=== PATIENT | female | born 1945 | race Caucasian/White ===

== ENCOUNTER 2024-05-08 23:14 | Inpatient (IN) | payer OTHER ==
[~2024-05-08] VITALS: Ht 165.1 cm; Wt 53.5 kg
[2024-05-08 23:37] LABS: BASOPHILS # (AUTO) 0.1 K/UL (0.0-0.2); BASOPHILS % (AUTO) 0.5 % (0.0-2.0); EOSINOPHILS # (AUTO) 0.2 K/uL (0.0-0.7); EOSINOPHILS % (AUTO) 1.3 % (0.0-7.0); HEMATOCRIT 27.6 % (31.2-41.9); LYMPHOCYTES # (AUTO) 0.9 K/uL (0.8-4.8); LYMPHOCYTES % (AUTO) 7.5 % (20.5-51.5); MEAN CORPUSCULAR HEMOGLOBIN 28.3 uug (24.7-32.8); MEAN CORPUSCULAR HGB CONC 33 g/dL (32.3-35.6); MEAN CORPUSCULAR VOLUME 86.3 fL (75.5-95.3); MONOCYTES # (AUTO) 0.7 K/uL (0.1-1.30); MONOCYTES % (AUTO) 5.9 % (0.0-11.0); NEUTROPHILS # (AUTO) 10.6 K/uL (1.8-8.9); NEUTROPHILS % (AUTO) 84.8 % (38.5-71.5); PLATELET COUNT (AUTO) 222 K/uL (179-408); RED BLOOD CELL COUNT(AUTO) 3.19 MIL/uL (3.63-4.92); RED CELL DISTRIBUTION WIDTH 13.1 % (12.3-17.7); WHITE BLOOD COUNT (AUTO) 12.6 K/uL (3.8-11.8)
[2024-05-08 23:58] LABS: ABG BASE EXCESS -5.8 mmol/L (-2.0-3.0); ABG HCO3 17.8 mmol/L (21.0-28.0); ABG PCO2 28.5 mmHg (32.0-45.0); ABG PH 7.414 (7.350-7.450); ABG PO2 67.6 mmHg (83.0-108.0); ABG SITE LEFT RADIAL; ABG TOTAL HEMOGLOBIN 9.6 G/dL (12.0-16.0); AaDO2 94.1 mmHg; COHb 0.3 % (0.5-1.5); MetHb 0.4 % (0.0-1.5); O2Hb 92.5 % (94.0-98.0)
[2024-05-08 23:58] LABS: ALANINE AMINOTRANSFERASE 51 U/L (14-59); ALBUMIN 2.9 g/dL (3.4-5.0); ALKALINE PHOSPHATASE 258 U/L (50-136); ASPARTATE AMINOTRANSFERASE 25 U/L (15-37); BILIRUBIN,TOTAL 0.5 mg/dL (0.2-1.0); CALCIUM 8.4 mg/dL (8.5-10.1); CARBON DIOXIDE 23 mmol/L (21-32); CHLORIDE 97 mmol/L (98-107); CREATININE 2.2 mg/dL (0.6-1.3); GLUCOSE 316 mg/dL (74-106); MAGNESIUM 2.1 mg/dL (1.8-2.4); NT-PRO BNP 17806 pg/mL (0-125); POTASSIUM 4.1 mmol/L (3.5-5.1); SODIUM SERUM 132 mmol/L (136-145); TOTAL PROTEIN, SERUM 7.4 g/dL (6.4-8.2); UREA NITROGEN, BLOOD 50 mg/dL (7-18)
[2024-05-09] MEDS ORDERED: FUROSEMIDE 40 MG/4 ML VIAL ONE (00:01)
[2024-05-09] MEDS: FUROSEMIDE 40 MG/4 ML VIAL IV ONE (00:03)
[2024-05-09 00:04] LABS: C-REACTIVE PROTEIN 4.83 mg/dL (0.00-0.30)
[2024-05-09] MEDS ORDERED: ATOR20TA PO (01:15)
[2024-05-09] MEDS ORDERED: DAPA10TA PO (01:15)
[2024-05-09] MEDS ORDERED: ASPI81TA31 PO (01:15)
[2024-05-09] MEDS ORDERED: calcium PO (01:15)
[2024-05-09] MEDS ORDERED: DORZ10DR13 EACHEYE (01:15)
[2024-05-09] MEDS ORDERED: FURO20TA4 PO (01:15)
[2024-05-09] MEDS ORDERED: SEMA7TAB PO (01:15)
[2024-05-09] MEDS ORDERED: BIMA2.5D5 EACHEYE (01:15)
[2024-05-09] MEDS ORDERED: LOSA50TA39 PO (01:15)
[2024-05-09] MEDS ORDERED: FERR-56 PO (01:15)
[2024-05-09] MEDS ORDERED: ASCO500C18 PO (01:15)
[2024-05-09] MEDS ORDERED: GLIP5TAB13 PO (01:15)
[2024-05-09] MEDS ORDERED: CARV3.122 PO (01:15)
[2024-05-09] MEDS ORDERED: FOLI0.8T23 PO (01:15)
[2024-05-09] MEDS ORDERED: CLON0.5T4 PO (01:15)
[2024-05-09] MEDS ORDERED: CALC0.253 PO (01:15)
[2024-05-09] MEDS ORDERED: HYDR100T27 PO (01:15)
[2024-05-09] MEDS ORDERED: CEFTRIAXONE /D5W 50ML IVPB **ER PYXIS IV ONE (01:53)
[2024-05-09] MEDS ORDERED: AZITHROMYCIN 500MG/ D5W 250ML IVPB **ER PYXIS ONLY IV ONE (01:53)
[2024-05-09] MEDS: CEFTRIAXONE 1 G in IV DEXTROSE 5% 50 ML IV ONE (01:55)
[2024-05-09] MEDS: AZITHROMYCIN IV 500 MG in IV DEXTROSE 5% 250 ML IV ONE (01:55)
[2024-05-09] MEDS ORDERED: ACETAMINOPHEN 325 MG TABLET PO PRN (03:00)
[2024-05-09] MEDS ORDERED: hydrALAZINE HCL 25 MG TABLET PO PRN (03:00)
[2024-05-09] MEDS ORDERED: REMEDY ESSENTIAL ZINC PASTE 113 GM TP PRN (03:00)
[2024-05-09] MEDS ORDERED: MAGNESIUM HYDROXIDE 30 ML LIQUID UDC PO PRN (03:00)
[2024-05-09] MEDS ORDERED: ONDANSETRON 4 MG/2 ML VIAL IV PRN (03:00)
[2024-05-09] MEDS ORDERED: ASPIRIN 81 MG TAB.CHEW ONE (06:40)
[2024-05-09] MEDS: ASPIRIN 81 MG TAB.CHEW PO ONE (06:41)
[2024-05-09 07:46] VITALS: TEMP 97
[2024-05-09] MEDS: PANTOPRAZOLE SODIUM 40 MG TABLET.DR PO SCH (07:50)
[2024-05-09 09:00] VITALS: O2SAT 99
[2024-05-09] MEDS: FUROSEMIDE 40 MG/4 ML VIAL IV SCH (09:07)
[2024-05-09] MEDS: HEPARIN SODIUM,PORCINE 5,000 UNITS/ML VIAL SQ SCH (09:09)
[2024-05-09] MEDS: NITROGLYCERIN OINT 1 GM PACKET TP SCH (09:11)
[2024-05-09] MEDS ORDERED: DEXTROSE 50% 50 ML DISP.SYRIN IV PRN (11:45)
[2024-05-09 12:00] VITALS: BP 120/70; TEMP 97.8; O2SAT 95
[2024-05-09] MEDS ORDERED: CLONAZEPAM 0.5 MG TABLET PO PRN (12:00)
[2024-05-09] MEDS ORDERED: CALC667T2 PO (12:25)
[2024-05-09 15:20] VITALS: O2SAT 96
[2024-05-09 16:00] VITALS: BP 131/75; TEMP 97.8; O2SAT 97
[2024-05-09] MEDS: BLOOD SUGAR DIAGNOSTIC 1 EACH STRIP VI SCH (16:15)
[2024-05-09] MEDS: INSULIN REGULAR, HUMAN 1000 UNIT/10 ML VIAL SQ PRN (16:28)
[2024-05-09] MEDS: CARVEDILOL 6.25 MG TABLET PO SCH (16:29)
[2024-05-09] MEDS: hydrALAZINE HCL 50 MG TABLET PO SCH (16:30)
[2024-05-09] MEDS: DORZOLAMIDE/TIMOLOL OPHT DROP 10 ML BOTTLE EACHEYE SCH (16:30)
[2024-05-09] MEDS ORDERED: FERROUS SULFATE 325 MG TABEC PO SCH ×2 (17:00)
[2024-05-09] MEDS ORDERED: CARVEDILOL 3.125 MG TABLET PO SCH (17:00)
[2024-05-09] MEDS: CALCIUM ACETATE 667 MG CAP/TAB PO SCH (17:35)
[2024-05-09 19:42] VITALS: BP 133/52; TEMP 97.7; O2SAT 100
[2024-05-09] MEDS ORDERED: BIMATOPROST 0.01% OPHT DROP 2.5 ML BOTTLE EACHEYE SCH (21:00)
[2024-05-09] MEDS: AZITHROMYCIN IV 500 MG in IV DEXTROSE 5% 250 ML IV SCH (22:54)
[2024-05-09] MEDS: CEFTRIAXONE 1 G in IV DEXTROSE 5% 50 ML IV SCH (22:54)
[2024-05-09] MEDS: ATORVASTATIN 20 MG TABLET PO SCH (22:54)
[2024-05-09] MEDS: LATANOPROST OPHT DROP 2.5 ML BOTTLE EACHEYE SCH (22:55)
[2024-05-10] VITALS (7 sets, daily range): BP systolic 111–176; BP diastolic 50–85; TEMP 97.6–98.3; O2SAT 96–99
[2024-05-10 07:17] LABS: BASOPHILS # (AUTO) 0.1 K/UL (0.0-0.2); BASOPHILS % (AUTO) 0.8 % (0.0-2.0); EOSINOPHILS # (AUTO) 0.2 K/uL (0.0-0.7); EOSINOPHILS % (AUTO) 3.1 % (0.0-7.0); HEMATOCRIT 22.1 % (31.2-41.9); HEMOGLOBIN 7.7 g/dL (10.9-14.3); LYMPHOCYTES # (AUTO) 1.2 K/uL (0.8-4.8); LYMPHOCYTES % (AUTO) 19.1 % (20.5-51.5); MEAN CORPUSCULAR HEMOGLOBIN 29.7 uug (24.7-32.8); MEAN CORPUSCULAR HGB CONC 35 g/dL (32.3-35.6); MEAN CORPUSCULAR VOLUME 85.3 fL (75.5-95.3); MONOCYTES # (AUTO) 0.7 K/uL (0.1-1.30); MONOCYTES % (AUTO) 10.1 % (0.0-11.0); NEUTROPHILS # (AUTO) 4.3 K/uL (1.8-8.9); NEUTROPHILS % (AUTO) 66.9 % (38.5-71.5); PLATELET COUNT (AUTO) 194 K/uL (179-408); RED CELL DISTRIBUTION WIDTH 12.9 % (12.3-17.7); WHITE BLOOD COUNT (AUTO) 6.4 K/uL (3.8-11.8)
[2024-05-10 07:34] LABS: DIFFERENTIAL COMMENT 1
[2024-05-10 07:59] LABS: ALANINE AMINOTRANSFERASE 34 U/L (14-59); ALBUMIN 2.7 g/dL (3.4-5.0); ALKALINE PHOSPHATASE 173 U/L (50-136); ASPARTATE AMINOTRANSFERASE 20 U/L (15-37); BILIRUBIN,DIRECT 0.1 mg/dL (0.0-0.2); BILIRUBIN,TOTAL 0.5 mg/dL (0.2-1.0); CALCIUM 8.3 mg/dL (8.5-10.1); CARBON DIOXIDE 23 mmol/L (21-32); CHLORIDE 96 mmol/L (98-107); CREATINE KINASE, TOTAL 25 U/L (26-192); CREATININE 2.3 mg/dL (0.6-1.3); GLUCOSE 142 mg/dL (74-106); MAGNESIUM 2.1 mg/dL (1.8-2.4); NT-PRO BNP 22756 pg/mL (0-125); PHOSPHOROUS 3.8 mg/dL (2.5-4.9); POTASSIUM 3.4 mmol/L (3.5-5.1); SODIUM SERUM 132 mmol/L (136-145); TOTAL PROTEIN, SERUM 6.6 g/dL (6.4-8.2); UREA NITROGEN, BLOOD 50 mg/dL (7-18)
[2024-05-10 08:04] LABS: THYROID STIMULATING HORMONE 4.007 mIU/mL (0.358-3.740)
[2024-05-10] MEDS: ASCORBIC ACID 500 MG TABLET PO SCH (08:21)
[2024-05-10] MEDS: ASPIRIN 81 MG TAB.CHEW PO SCH (08:21)
[2024-05-10] MEDS: FOLIC ACID/VITAMIN B COMP W-C TABLET PO SCH (08:21)
[2024-05-10] MEDS: FERROUS SULFATE 325 MG TABEC PO SCH (08:21)
[2024-05-10] MEDS: DAPAGLIFLOZIN PROPANEDIOL 5 MG TABLET PO SCH (08:22)
[2024-05-10] MEDS ORDERED: POTASSIUM CHLORIDE 20 MEQ POWDER PACKET GT ONE (09:00)
[2024-05-10] MEDS: POTASSIUM CHLORIDE 20 MEQ TAB.PRT.SR PO ONE (09:20)
[2024-05-11] VITALS: BP 140/63; TEMP 97.9; O2SAT 97
[2024-05-11 04:00] VITALS: BP 124/44; TEMP 98.5; O2SAT 95
[2024-05-11 04:17] VITALS: O2SAT 97
[2024-05-11 07:08] LABS: BASOPHILS # (AUTO) 0.1 K/UL (0.0-0.2); BASOPHILS % (AUTO) 0.8 % (0.0-2.0); EOSINOPHILS # (AUTO) 0.3 K/uL (0.0-0.7); EOSINOPHILS % (AUTO) 3.7 % (0.0-7.0); HEMATOCRIT 22.7 % (31.2-41.9); LYMPHOCYTES # (AUTO) 1.5 K/uL (0.8-4.8); LYMPHOCYTES % (AUTO) 22.1 % (20.5-51.5); MEAN CORPUSCULAR HEMOGLOBIN 29.9 uug (24.7-32.8); MEAN CORPUSCULAR HGB CONC 35 g/dL (32.3-35.6); MEAN CORPUSCULAR VOLUME 84.7 fL (75.5-95.3); MONOCYTES # (AUTO) 0.6 K/uL (0.1-1.30); MONOCYTES % (AUTO) 8.9 % (0.0-11.0); NEUTROPHILS # (AUTO) 4.4 K/uL (1.8-8.9); NEUTROPHILS % (AUTO) 64.5 % (38.5-71.5); PLATELET COUNT (AUTO) 218 K/uL (179-408); RED BLOOD CELL COUNT(AUTO) 2.68 MIL/uL (3.63-4.92); RED CELL DISTRIBUTION WIDTH 13.3 % (12.3-17.7); WHITE BLOOD COUNT (AUTO) 6.9 K/uL (3.8-11.8)
[2024-05-11 07:22] LABS: DIFFERENTIAL COMMENT 1
[2024-05-11 07:37] LABS: CALCIUM 8.5 mg/dL (8.5-10.1); CARBON DIOXIDE 24 mmol/L (21-32); CHLORIDE 96 mmol/L (98-107); CREATININE 2.5 mg/dL (0.6-1.3); GLUCOSE 148 mg/dL (74-106); MAGNESIUM 2.1 mg/dL (1.8-2.4); PHOSPHOROUS 3.6 mg/dL (2.5-4.9); SODIUM SERUM 131 mmol/L (136-145); UREA NITROGEN, BLOOD 46 mg/dL (7-18)
[2024-05-11 07:39] LABS: C-REACTIVE PROTEIN 2.45 mg/dL (0.00-0.30)
[2024-05-11 07:46] VITALS: BP 136/64; TEMP 98.3; O2SAT 99
[2024-05-11 08:10] LABS: PTH, INTACT 57 pg/mL (15-65)
[2024-05-11 08:30] VITALS: BP 136/64
[2024-05-11] MEDS: FUROSEMIDE 40 MG TABLET PO SCH (08:30)
[2024-05-11] MEDS ORDERED: FURO-151 PO (10:29)
[2024-05-12 05:07] LABS: A/G RATIO 0.9 (0.7-1.7); ALBUMIN 2.7 g/dL (2.9-4.4); ALPHA-1-GLOBULIN 0.3 g/dL (0.0-0.4); ALPHA-2-GLOBULIN 0.8 g/dL (0.4-1.0); BETA GLOBULIN 0.8 g/dL (0.7-1.3); GAMMA GLOBULIN 1.2 g/dL (0.4-1.8); M-SPIKE Not Observed g/dL (Not Observed); PROTEIN, TOTAL 5.7 g/dL (6.0-8.5)
[2024-05-12] MEDS ORDERED: CALCITRIOL 0.25 MCG CAPSULE PO SCH (09:00)
== END 2024-05-11 12:30 | disposition home or self-care (01) | DRG 194 ==
LOC: ER 23:30 → TELE3 05-09 02:50
PROVIDERS: ADMIT Student in an Organized Health Care Education/Training Program
PROC: 5A09357 Assistance with Respiratory Ventilation, Less than 24 Consecutive Hours, Continuous Positive Airway Pressure (ICD-10-PCS; principal; 2024-05-09)
DX: I13.0 Hypertensive heart and chronic kidney disease with heart failure and stage 1 through stage 4 chronic kidney disease, or unspecified chronic kidney disease (principal); J96.01 Acute respiratory failure with hypoxia; I21.A1 Myocardial infarction type 2; E44.0 Moderate protein-calorie malnutrition; E87.1 Hypo-osmolality and hyponatremia; E11.22 Type 2 diabetes mellitus with diabetic chronic kidney disease; D64.9 Anemia, unspecified; I50.33 Acute on chronic diastolic (congestive) heart failure; N18.9 Chronic kidney disease, unspecified; E88.09 Other disorders of plasma-protein metabolism, not elsewhere classified; N17.9 Acute kidney failure, unspecified; E78.5 Hyperlipidemia, unspecified; E11.65 Type 2 diabetes mellitus with hyperglycemia; D72.829 Elevated white blood cell count, unspecified; Z79.84 Long term (current) use of oral hypoglycemic drugs; Z79.899 Other long term (current) drug therapy; Z79.82 Long term (current) use of aspirin
CPT/HCPCS: 36415; 36600; 71045; 76770; 82803; 83735; 83970; 84100; 84155; 84165; 84443; 84484; 85025; 86140; 93307; 94660; 99082-TC; G0378; J0456; J0696; J1644; J1815; J1940; J7050